=== PATIENT | male | born 1970 | race Two or more races ===

== ENCOUNTER 2024-03-25 11:00 | Inpatient (IN) | payer OTHER ==
[~2024-03-25] VITALS: Ht 180.3 cm; Wt 112.7 kg
[2024-03-25] MEDS: ONDANSETRON HCL 4 MG/2 ML VIAL IVP ONE (12:05)
[2024-03-25] MEDS: SODIUM CHLORIDE 0.9% 1,000 ML IV ONE (12:05)
[2024-03-25] MEDS: IOHEXOL 9 MG/ML 500 ML BOTTLE PO ONE (12:08)
[2024-03-25] MEDS ORDERED: IOHEXOL 350 MG/ML 100 ML VIAL ONE (12:52)
[2024-03-25] MEDS ORDERED: SODIUM CHLORIDE 0.9% 100 ML ONE (12:52)
[2024-03-25 12:59] LABS: BASOPHILS % (AUTO) 1.7 % (0.0-2.0); EOSINOPHILS % (AUTO) 10.3 % (1.0-6.0); HEMATOCRIT 44.8 % (41-53); HEMOGLOBIN 14.7 g/dL (13.5-17.5); LYMPHOCYTES # (AUTO) 2.1 K/uL (1.0-4.8); MEAN CORPUSCULAR HEMOGLOBIN 29.4 pg (26.0-34.0); MEAN CORPUSCULAR HGB CONC 32.8 G/dL (31.0-37.0); MEAN CORPUSCULAR VOLUME 90 fL (80-100); MONOCYTES # (AUTO) 1.3 K/uL (0.1-1.0); MONOCYTES % (AUTO) 14.5 % (2.0-9.0); NEUTROPHILS # (AUTO) 4.3 K/uL (1.8-7.7); NEUTROPHILS % (AUTO) 49.5 % (40.0-70.0); PLATELET COUNT (AUTO) 276 K/uL (150-450); RED CELL DISTRIBUTION WIDTH 15.9 % (11.5-14.5); WHITE BLOOD COUNT (AUTO) 8.6 K/uL (4.5-11.0)
[2024-03-25 13:04] LABS: ANION GAP 5 mmol/L (8-16); CALCIUM, TOTAL 8.5 mg/dL (8.8-10.5); CARBON DIOXIDE 30 mmol/L (22-29); CHLORIDE 102 mmol/L (98-107); CREATININE 0.88 mg/dL (0.60-1.30); GLOMERULAR FILTR. RATE CALC > 60 mL/min (>60); GLUCOSE,RANDOM 102 mg/dL (70-110); POTASSIUM 3.7 mmol/L (3.5-5.1); SODIUM SERUM 137 mmol/L (136-145); UREA NITROGEN, BLOOD 12 mg/dL (7-18)
[2024-03-25 13:10] LABS: ALANINE AMINOTRANSFERASE 108 U/L (12-78); ALBUMIN 3.4 g/dL (3.4-5.0); ALKALINE PHOSPHATASE 179 U/L (46-116); ASPARTATE AMINOTRANSFERASE 54 U/L (15-37); BILIRUBIN,TOTAL 0.7 mg/dL (0.1-1.0); LIPASE 74 U/L (16-77); TOTAL PROTEIN, SERUM 7.2 g/dL (6.4-8.2)
[2024-03-25 13:12] LABS: TROPONIN I-HIGH SENSITIVITY 13 ng/L (<76)
[2024-03-25 13:38] LABS: LACTIC ACID 2.1 mmol/L (0.4-2.0)
[2024-03-25] MEDS ORDERED: ONDANSETRON HCL 4 MG/2 ML VIAL IVP PRN (14:15)
[2024-03-25] MEDS: PEG 3350/NA SULF,BICARB,CL/KCL 4000 ML SOLUTION PO ONE (15:52)
[2024-03-25] MEDS: DEXTROSE 5%-LACTATED RINGERS 1,000 ML IV SCH (15:54)
[2024-03-25] MEDS ORDERED: PIPERACILLIN/TAZO 3.375 GM/D5W 50 ML IV ONE (16:00)
[2024-03-25] MEDS ORDERED: SODIUM CHLORIDE 0.9% 500 ML IV ONE (18:30)
[2024-03-25] MEDS: ACETAMINOPHEN 325 MG TABLET PO PRN (18:32)
[2024-03-25] MEDS: HEPARIN SODIUM,PORCINE 5,000 UNITS/ML VIAL SQ SCH (18:33)
[2024-03-25] MEDS: PIPERACILLIN/TAZO 3.375 GM/D5W 50 ML IV SCH (18:33)
[2024-03-25 19:47] VITALS: BP 139/78; PULSE 69; RESP 18; TEMP 98.1; O2SAT 98
[2024-03-25] MEDS ORDERED: DEXTROSE 50%-WATER 25 GM/50 ML SYRINGE IVP PRN (20:00)
[2024-03-25] MEDS: DOCUSATE SODIUM 100 MG CAPSULE PO SCH (20:10)
[2024-03-25] MEDS: INSULIN LISPRO 100 UNITS/ML SQ PRN (20:16)
[2024-03-26 04:24] VITALS: BP 129/90; PULSE 62; RESP 18; TEMP 97.8; O2SAT 97
[2024-03-26 05:23] LABS: APPEARANCE,URINE CLEAR (CLEAR); BILIRUBIN,URINE NEGATIVE (NEGATIVE); COLOR,URINE LIGHT YELLOW (YELLOW); GLUCOSE, URINE (UA) NEGATIVE (NEGATIVE); KETONES,URINE NEGATIVE (NEGATIVE); LEUKOCYTE ESTERASE ,URINE NEGATIVE (NEGATIVE); NITRATE,URINE NEGATIVE (NEGATIVE); OCCULT BLOOD,URINE NEGATIVE (NEGATIVE); PH,URINE 7.5 (5.0-8.0); PH,URINE DRUG SCREEN 7.5 (5.0-8.0); PROTEIN,URINE TRACE mg/dL (NEGATIVE); SPECIFIC GRAVITIY, URINE 1.015 (1.003-1.030); UROBILINOGEN,URINE <=1.0 mg/dL (<=1.0)
[2024-03-26 05:31] LABS: AMPHET/METH SCREEN,URINE NEGATIVE (NEGATIVE); BARBITURATE SCREEN, URINE NEGATIVE (NEGATIVE); BENZODIAZEPINES SCREEN,URINE NEGATIVE (NEGATIVE); CANNABINOID SCREEN,URINE NEGATIVE (NEGATIVE); COCAINE SCREEN,URINE NEGATIVE (NEGATIVE); METHADONE SCREEN, URINE NEGATIVE (NEGATIVE); OPIATE SCREEN,URINE NEGATIVE (NEGATIVE); PHENCYCLIDINE SCREEN,URINE NEGATIVE (NEGATIVE)
[2024-03-26 05:36] LABS: ALCOHOL, URINE DRUG SCREEN NEGATIVE (NEGATIVE)
[2024-03-26 05:45] LABS: GLUCOMETER DEV NAME(LOC) 6N.2B; GLUCOSE,POINT OF CARE 103 MG/DL (70-110)
[2024-03-26 05:45] LABS: GLUCOMETER DEV NAME(LOC) 6N.2B; GLUCOSE,POINT OF CARE 243 MG/DL (70-110)
[2024-03-26 05:58] LABS: BACTERIA,URINE None Seen /HPF (None Seen); RBC,URINE None Seen /HPF (0-2); SQUAMOUS EPITHELIAL CELL,UR Few /LPF (None Seen); WBC,URINE None Seen /HPF (0-5)
[2024-03-26 07:50] VITALS: BP 126/83; PULSE 62; RESP 18; TEMP 97.8; O2SAT 96
[2024-03-26 07:54] LABS: BASOPHILS % (AUTO) 1.5 % (0.0-2.0); HEMATOCRIT 42.3 % (41-53); HEMOGLOBIN 14.3 g/dL (13.5-17.5); LYMPHOCYTES # (AUTO) 2.3 K/uL (1.0-4.8); LYMPHOCYTES % (AUTO) 23.4 % (22.0-44.0); MEAN CORPUSCULAR HEMOGLOBIN 29.8 pg (26.0-34.0); MEAN CORPUSCULAR HGB CONC 33.7 G/dL (31.0-37.0); MEAN CORPUSCULAR VOLUME 89 fL (80-100); MONOCYTES # (AUTO) 1.2 K/uL (0.1-1.0); MONOCYTES % (AUTO) 12.1 % (2.0-9.0); NEUTROPHILS # (AUTO) 5.1 K/uL (1.8-7.7); PLATELET COUNT (AUTO) 263 K/uL (150-450); RED BLOOD CELL COUNT(AUTO) 4.78 MIL/uL (4.50-5.90); RED CELL DISTRIBUTION WIDTH 15.6 % (11.5-14.5); WHITE BLOOD COUNT (AUTO) 9.6 K/uL (4.5-11.0)
[2024-03-26] MEDS ORDERED: LOSA-382 PO (07:55)
[2024-03-26] MEDS ORDERED: SERT-158 PO (07:55)
[2024-03-26] MEDS ORDERED: BISA-151 PO (07:55)
[2024-03-26] MEDS ORDERED: HYDR25TA2 PO (07:55)
[2024-03-26] MEDS ORDERED: TRAZ-257 PO (07:55)
[2024-03-26] MEDS ORDERED: ATOR20TA PO (07:55)
[2024-03-26] MEDS ORDERED: BICT1TAB PO (07:55)
[2024-03-26] MEDS ORDERED: METF-1211 PO (07:55)
[2024-03-26] MEDS ORDERED: CHOL25TA4 PO (07:55)
[2024-03-26] MEDS ORDERED: PYRI25TA4 PO (07:55)
[2024-03-26] MEDS ORDERED: PRAZ1 PO (07:55)
[2024-03-26] MEDS ORDERED: AMLO-258 PO (07:55)
[2024-03-26 07:58] LABS: ANION GAP 6 mmol/L (8-16); CARBON DIOXIDE 30 mmol/L (22-29); CHLORIDE 103 mmol/L (98-107); CREATININE 0.87 mg/dL (0.60-1.30); GLOMERULAR FILTR. RATE CALC > 60 mL/min (>60); GLUCOSE,RANDOM 99 mg/dL (70-110); POTASSIUM 3.9 mmol/L (3.5-5.1); SODIUM SERUM 139 mmol/L (136-145); UREA NITROGEN, BLOOD 9 mg/dL (7-18)
[2024-03-26 12:34] VITALS: BP 134/81; PULSE 61; RESP 18; TEMP 97.6; O2SAT 96
[2024-03-26 14:37] LABS: PLATELET MORPHOLOGY COMMENT GIANT PLTS PRESENT
[2024-03-26 19:27] VITALS: BP 131/89; PULSE 65; RESP 18; TEMP 98.1; O2SAT 96
[2024-03-27 06:26] LABS: GLUCOMETER DEV NAME(LOC) 6S.2; GLUCOSE,POINT OF CARE 127 MG/DL (70-110)
[2024-03-27 06:26] LABS: GLUCOMETER DEV NAME(LOC) 6N.2B; GLUCOSE,POINT OF CARE 113 MG/DL (70-110)
[2024-03-27 06:26] LABS: GLUCOMETER DEV NAME(LOC) 6S.2; GLUCOSE,POINT OF CARE 109 MG/DL (70-110)
== END 2024-03-26 20:49 | DRG 392 ==
LOC: EMS 11:00 → EDH 14:13 → 6S 16:35
PROVIDERS: ADMIT Internal Medicine; ATTEND Internal Medicine
DX: K59.00 Constipation, unspecified (principal); E87.20 Acidosis, unspecified; I10 Essential (primary) hypertension; E11.9 Type 2 diabetes mellitus without complications; E86.0 Dehydration; K74.60 Unspecified cirrhosis of liver; K86.9 Disease of pancreas, unspecified
CPT/HCPCS: 74177; 80048; 80076; 80307; 81001; 82962; 83605; 83690; 83735; 84484; 85025; 93005; 99285; J1644; J2405; J2543; J7030; J7040; J7050

== ENCOUNTER 2024-04-26 15:53 | Emergency (ER) | payer OTHER ==
[~2024-04-26] VITALS: Ht 180.3 cm; Wt 111.8 kg
[~2024-04-26 15:53] MED LIST: AMLO-258 PO; ATOR20TA PO; BICT1TAB PO; BISA-151 PO; CHOL25TA4 PO; HYDR25TA2 PO; LOSA-382 PO; METF-1211 PO; PRAZ1 PO; PYRI25TA4 PO; SERT-158 PO; TRAZ-257 PO
[2024-04-26 17:22] VITALS: BP 121/73; PULSE 66; RESP 16; TEMP 97.8; O2SAT 98
[2024-04-26 17:46] LABS: BASOPHILS % (AUTO) 1.1 % (0.0-2.0); EOSINOPHILS % (AUTO) 7.8 % (1.0-6.0); HEMATOCRIT 39.1 % (41-53); HEMOGLOBIN 13.2 g/dL (13.5-17.5); LYMPHOCYTES # (AUTO) 2.3 K/uL (1.0-4.8); LYMPHOCYTES % (AUTO) 27.5 % (22.0-44.0); MEAN CORPUSCULAR HGB CONC 33.8 G/dL (31.0-37.0); MEAN CORPUSCULAR VOLUME 89 fL (80-100); MONOCYTES # (AUTO) 1.3 K/uL (0.1-1.0); MONOCYTES % (AUTO) 15.1 % (2.0-9.0); NEUTROPHILS # (AUTO) 4.1 K/uL (1.8-7.7); NEUTROPHILS % (AUTO) 48.5 % (40.0-70.0); PLATELET COUNT (AUTO) 253 K/uL (150-450); RED BLOOD CELL COUNT(AUTO) 4.42 MIL/uL (4.50-5.90); RED CELL DISTRIBUTION WIDTH 15.1 % (11.5-14.5); WHITE BLOOD COUNT (AUTO) 8.4 K/uL (4.5-11.0)
[2024-04-26 17:49] LABS: APPEARANCE,URINE CLEAR (CLEAR); BILIRUBIN,URINE NEGATIVE (NEGATIVE); COLOR,URINE LIGHT YELLOW (YELLOW); GLUCOSE, URINE (UA) NEGATIVE (NEGATIVE); KETONES,URINE NEGATIVE (NEGATIVE); LEUKOCYTE ESTERASE ,URINE NEGATIVE (NEGATIVE); NITRATE,URINE NEGATIVE (NEGATIVE); OCCULT BLOOD,URINE NEGATIVE (NEGATIVE); PROTEIN,URINE TRACE mg/dL (NEGATIVE); SPECIFIC GRAVITIY, URINE 1.012 (1.003-1.030); UROBILINOGEN,URINE <=1.0 mg/dL (<=1.0)
[2024-04-26] MEDS ORDERED: TRAZ150T80 PO (17:50)
[2024-04-26 18:00] LABS: ANION GAP 7 mmol/L (8-16); CALCIUM, TOTAL 8.5 mg/dL (8.8-10.5); CARBON DIOXIDE 27 mmol/L (22-29); CHLORIDE 104 mmol/L (98-107); CREATININE 0.99 mg/dL (0.60-1.30); GLOMERULAR FILTR. RATE CALC > 60 mL/min (>60); GLUCOSE,RANDOM 121 mg/dL (70-110); LIPASE 54 U/L (16-77); POTASSIUM 3.4 mmol/L (3.5-5.1); SODIUM SERUM 138 mmol/L (136-145); UREA NITROGEN, BLOOD 10 mg/dL (7-18)
[2024-04-26] MEDS: SODIUM CHLORIDE 0.9% 1,000 ML IV ONE (18:44)
== END 2024-04-27 02:41 ==
LOC: EMS 15:53
DX: K59.09 Other constipation (principal); K74.60 Unspecified cirrhosis of liver; G89.29 Other chronic pain; E11.9 Type 2 diabetes mellitus without complications; I10 Essential (primary) hypertension; Z79.84 Long term (current) use of oral hypoglycemic drugs; Z90.49 Acquired absence of other specified parts of digestive tract; Z98.890 Other specified postprocedural states; Z79.899 Other long term (current) drug therapy
CPT/HCPCS: 99284; 74176; 96360; 80048; 81003; 83690; 85025; 36415; 82962; 93005; J7030

== ENCOUNTER 2024-06-12 13:55 | Emergency (ER) | payer OTHER ==
[~2024-06-12] VITALS: Ht 180.3 cm; Wt 108.6 kg
[~2024-06-12 13:55] MED LIST changes: -TRAZ-257 PO; +TRAZ150T80 PO
[2024-06-12 14:45] LABS: BASOPHILS % (AUTO) 1.6 % (0.0-2.0); EOSINOPHILS % (AUTO) 8.7 % (1.0-6.0); HEMATOCRIT 37.9 % (41-53); HEMOGLOBIN 12.6 g/dL (13.5-17.5); LYMPHOCYTES # (AUTO) 1.8 K/uL (1.0-4.8); LYMPHOCYTES % (AUTO) 29.1 % (22.0-44.0); MEAN CORPUSCULAR HEMOGLOBIN 29.4 pg (26.0-34.0); MEAN CORPUSCULAR HGB CONC 33.2 G/dL (31.0-37.0); MEAN CORPUSCULAR VOLUME 89 fL (80-100); MONOCYTES # (AUTO) 0.8 K/uL (0.1-1.0); MONOCYTES % (AUTO) 13.2 % (2.0-9.0); NEUTROPHILS % (AUTO) 47.4 % (40.0-70.0); PLATELET COUNT (AUTO) 230 K/uL (150-450); RED BLOOD CELL COUNT(AUTO) 4.28 MIL/uL (4.50-5.90); RED CELL DISTRIBUTION WIDTH 14.6 % (11.5-14.5); WHITE BLOOD COUNT (AUTO) 6.3 K/uL (4.5-11.0)
[2024-06-12 14:55] LABS: ANION GAP 5 mmol/L (8-16); CALCIUM, TOTAL 8.8 mg/dL (8.8-10.5); CARBON DIOXIDE 29 mmol/L (22-29); CHLORIDE 105 mmol/L (98-107); CREATININE 0.75 mg/dL (0.60-1.30); GLOMERULAR FILTR. RATE CALC > 60 mL/min (>60); GLUCOSE,RANDOM 78 mg/dL (70-110); SODIUM SERUM 139 mmol/L (136-145); UREA NITROGEN, BLOOD 12 mg/dL (7-18)
[2024-06-12 14:56] VITALS: TEMP 97.8
[2024-06-12 14:59] LABS: ALBUMIN 3.1 g/dL (3.4-5.0); BILIRUBIN,TOTAL 0.6 mg/dL (0.1-1.0); TOTAL PROTEIN, SERUM 7.1 g/dL (6.4-8.2)
[2024-06-12 15:14] LABS: B-TYPE NATRIURETIC PEPTIDE 17 pg/mL (0-100)
[2024-06-12 15:26] LABS: BILIRUBIN,DIRECT 0.3 mg/dL (0.00-0.20)
[2024-06-12 16:35] VITALS: BP 122/81; PULSE 72; RESP 20; O2SAT 97
== END 2024-06-12 16:40 | disposition home or self-care (01) ==
LOC: EMS 13:55
DX: R60.0 Localized edema (principal); E11.9 Type 2 diabetes mellitus without complications; I10 Essential (primary) hypertension; Z79.84 Long term (current) use of oral hypoglycemic drugs; Z90.49 Acquired absence of other specified parts of digestive tract; Z79.899 Other long term (current) drug therapy; Z98.890 Other specified postprocedural states
CPT/HCPCS: 80048; 80076; 83880; 85025; 93970; 99284

== ENCOUNTER 2024-09-26 10:39 | Inpatient (IN) | payer OTHER ==
[~2024-09-26] VITALS: Ht 177.8 cm; Wt 112.5 kg
[~2024-09-26 10:39] MED LIST changes: +ACET-2247 PO; +BISA10SU11 PR; +DOCU-385 PO; +FAMO20 PO; +INSU100V SQ; +LINA145C PO; +MAGN-169 PO
[2024-09-26 11:18] LABS: COVID AG,FIA SOURCE NASAL SWAB
[2024-09-26 11:25] LABS: APPEARANCE,URINE CLEAR (CLEAR); GLUCOSE, URINE (UA) NEGATIVE (NEGATIVE); LEUKOCYTE ESTERASE ,URINE LARGE (NEGATIVE); NITRATE,URINE NEGATIVE (NEGATIVE); OCCULT BLOOD,URINE SMALL (NEGATIVE); SPECIFIC GRAVITIY, URINE 1.011 (1.003-1.030)
[2024-09-26 11:42] LABS: SQUAMOUS EPITHELIAL CELL,UR Few /LPF (None Seen)
[2024-09-26 11:47] LABS: SARS-COV2 (COVID) ANTIGEN,FIA Negative (Negative)
[2024-09-26 11:48] LABS: INFLUENZA TYPE A NEGATIVE FOR TYPE A (NEGATIVE); INFLUENZA TYPE B NEGATIVE FOR TYPE B (NEGATIVE)
[2024-09-26 11:49] LABS: PLATELET COUNT (AUTO) 180 K/uL (150-450); RED BLOOD CELL COUNT(AUTO) 4.17 MIL/uL (4.50-5.90); RED CELL DISTRIBUTION WIDTH 15.6 % (11.5-14.5); WHITE BLOOD COUNT (AUTO) 22.8 K/uL (4.5-11.0)
[2024-09-26 11:54] LABS: CALCIUM, TOTAL 8.2 mg/dL (8.8-10.5); CREATININE 0.90 mg/dL (0.60-1.30); GLOMERULAR FILTR. RATE CALC > 60 mL/min (>60); GLUCOSE,RANDOM 131 mg/dL (70-110); SODIUM SERUM 139 mmol/L (136-145); UREA NITROGEN, BLOOD 11 mg/dL (7-18)
[2024-09-26] MEDS: SODIUM CHLORIDE 0.9% 1,000 ML IV ONE ×2 (12:02→15:22)
[2024-09-26 12:10] LABS: LACTIC ACID 0.9 mmol/L (0.4-2.0)
[2024-09-26] MEDS ORDERED: 0.9% SODIUM CHLORIDE 10 ML SYRINGE IVP PRN (12:15)
[2024-09-26] MEDS: CefTRIAXone 1 GM/DEXTROSE 50 ML IV ONE (12:16)
[2024-09-26] MEDS: SODIUM CHLORIDE 0.9% 3,150 ML IV ONE (12:18)
[2024-09-26] MEDS ORDERED: ZOLPIDEM TARTRATE 5 MG TABLET PO PRN (14:00)
[2024-09-26] MEDS ORDERED: MAGNESIUM HYDROXIDE SUSPENSION 30 ML UDCUP PO PRN (14:00)
[2024-09-26] MEDS ORDERED: BISACODYL 10 MG RECTAL RECTAL SUPPOSITORY PR PRN (14:00)
[2024-09-26] MEDS ORDERED: DEXTROSE 50%-WATER 25 GM/50 ML SYRINGE IVP PRN (14:00)
[2024-09-26] MEDS ORDERED: ONDANSETRON HCL 4 MG/2 ML VIAL IVP PRN (14:00)
[2024-09-26] MEDS ORDERED: OMEP-148 PO (14:28)
[2024-09-26] MEDS ORDERED: TRAZ-257 PO (14:28)
[2024-09-26] MEDS ORDERED: SPIR-37 PO (14:28)
[2024-09-26] MEDS ORDERED: PYRI-9 PO (14:28)
[2024-09-26] MEDS ORDERED: CARV12 PO (14:28)
[2024-09-26] MEDS ORDERED: METH1ADH11 TP (14:28)
[2024-09-26] MEDS ORDERED: LOSA-382 PO (14:28)
[2024-09-26] MEDS ORDERED: PREG75 PO (14:28)
[2024-09-26] MEDS ORDERED: ARIP15TA27 PO (14:28)
[2024-09-26] MEDS ORDERED: FURO40TA6 PO (14:28)
[2024-09-26 14:48] VITALS: BP 147/82; PULSE 66; RESP 18; TEMP 98.2; O2SAT 98
[2024-09-26] MEDS: HEPARIN SODIUM,PORCINE 5,000 UNITS/ML VIAL SQ SCH (15:22)
[2024-09-26 16:00] LABS: GLUCOMETER DEV NAME(LOC) 5S.1D; GLUCOSE,POINT OF CARE 99 MG/DL (70-110)
[2024-09-26] MEDS: MORPHINE SULFATE 2 MG/ML SYRINGE IVP PRN (17:42)
[2024-09-26] MEDS: DOCUSATE SODIUM 100 MG CAPSULE PO SCH (20:06)
[2024-09-26] MEDS: SERTRALINE HCL 50 MG TABLET PO SCH (20:07)
[2024-09-26] MEDS: TraZODone HCL 150 MG TABLET PO SCH (20:07)
[2024-09-26] MEDS: INSULIN LISPRO 100 UNITS/ML SQ PRN (20:12)
[2024-09-26 20:15] VITALS: BP 131/75; PULSE 80; RESP 18; TEMP 101.8; O2SAT 96
[2024-09-26] MEDS: ACETAMINOPHEN 325 MG TABLET PO PRN (20:21)
[2024-09-26 21:15] VITALS: TEMP 98.9
[2024-09-26 21:16] LABS: GLUCOMETER DEV NAME(LOC) 5S.1D; GLUCOSE,POINT OF CARE 208 MG/DL (70-110)
[2024-09-26 23:28] VITALS: BP 125/76; PULSE 69; RESP 18; TEMP 99.7; O2SAT 96
[2024-09-26] MEDS: HYDROCODONE/ACETAMINOPHEN 5-325 MG TABLET PO PRN (23:36)
[2024-09-27 00:30] VITALS: TEMP 98.6
[2024-09-27 04:28] VITALS: BP 132/81; PULSE 55; RESP 19; TEMP 97.7; O2SAT 96
[2024-09-27 06:01] LABS: GLUCOMETER DEV NAME(LOC) 5S.1D; GLUCOSE,POINT OF CARE 153 MG/DL (70-110)
[2024-09-27 06:01] LABS: GLUCOMETER DEV NAME(LOC) 5S.1D; GLUCOSE,POINT OF CARE 107 MG/DL (70-110)
[2024-09-27 07:30] VITALS: BP 130/79; PULSE 59; RESP 18; TEMP 98.4; O2SAT 96
[2024-09-27] MEDS: BICTEGRAV/EMTRICIT/TENOFOV ALA 50-200-25 MG TABLET PO SCH (08:18)
[2024-09-27] MEDS: ATORVASTATIN CALCIUM 20 MG TABLET PO SCH (08:18)
[2024-09-27] MEDS: PANTOPRAZOLE SODIUM 40 MG DR TABLET PO SCH (08:19)
[2024-09-27] MEDS: CHOLECALCIFEROL (VIT D3) 1,000 UNITS [25 MCG] TABLET PO SCH (08:19)
[2024-09-27 10:12] VITALS: BP 137/81; PULSE 67; RESP 18; TEMP 98.4; O2SAT 96
[2024-09-27 11:25] LABS: PLATELET COUNT (AUTO) 196 K/uL (150-450); RED BLOOD CELL COUNT(AUTO) 4.35 MIL/uL (4.50-5.90); RED CELL DISTRIBUTION WIDTH 15.9 % (11.5-14.5); WHITE BLOOD COUNT (AUTO) 18.4 K/uL (4.5-11.0)
[2024-09-27] MEDS ORDERED: SODIUM CHLORIDE 0.9% 250 ML IV ONE (11:42)
[2024-09-27] MEDS: CefTRIAXone 1 GM/DEXTROSE 50 ML IV SCH (12:08)
[2024-09-27 13:11] LABS: GLUCOMETER DEV NAME(LOC) 6S.1D; GLUCOSE,POINT OF CARE 119 MG/DL (70-110)
[2024-09-27 20:31] VITALS: BP 127/78; PULSE 58; RESP 18; TEMP 98.8; O2SAT 95
[2024-09-27] MEDS: DOXYCYCLINE HYCLATE 100 MG TABLET PO SCH (20:39)
[2024-09-28 04:54] VITALS: BP 138/92; PULSE 58; RESP 20; TEMP 98.4; O2SAT 96
[2024-09-28 07:51] LABS: GLUCOMETER DEV NAME(LOC) 6S.1D; GLUCOSE,POINT OF CARE 109 MG/DL (70-110)
[2024-09-28 07:51] LABS: GLUCOMETER DEV NAME(LOC) 6S.2; GLUCOSE,POINT OF CARE 117 MG/DL (70-110)
[2024-09-28 07:51] LABS: GLUCOMETER DEV NAME(LOC) 6S.1D; GLUCOSE,POINT OF CARE 121 MG/DL (70-110)
[2024-09-28 08:00] VITALS: BP 145/94; PULSE 50; RESP 19; TEMP 98.2; O2SAT 98
[2024-09-28 18:00] LABS: GLUCOMETER DEV NAME(LOC) 6S.1D; GLUCOSE,POINT OF CARE 130 MG/DL (70-110)
[2024-09-28 18:00] LABS: GLUCOMETER DEV NAME(LOC) 6S.1D; GLUCOSE,POINT OF CARE 142 MG/DL (70-110)
[2024-09-28 19:28] VITALS: BP 138/88; PULSE 58; RESP 18; TEMP 98.2; O2SAT 97
[2024-09-29 04:28] VITALS: BP 149/94; PULSE 59; RESP 18; TEMP 98.2; O2SAT 96
[2024-09-29 08:47] VITALS: BP 147/98; PULSE 65; RESP 19; TEMP 98.1; O2SAT 95
[2024-09-29 12:10] LABS: GLUCOMETER DEV NAME(LOC) 6S.1D; GLUCOSE,POINT OF CARE 148 MG/DL (70-110)
[2024-09-29 12:10] LABS: GLUCOMETER DEV NAME(LOC) 6S.1D; GLUCOSE,POINT OF CARE 104 MG/DL (70-110)
[2024-09-29 14:03] LABS: PLATELET COUNT (AUTO) 281 K/uL (150-450); RED BLOOD CELL COUNT(AUTO) 4.69 MIL/uL (4.50-5.90); RED CELL DISTRIBUTION WIDTH 15.7 % (11.5-14.5); WHITE BLOOD COUNT (AUTO) 7.6 K/uL (4.5-11.0)
[2024-09-29 20:06] VITALS: BP 145/94; PULSE 56; RESP 18; TEMP 97.9; O2SAT 97
[2024-09-30 04:31] VITALS: BP 145/93; PULSE 57; RESP 18; TEMP 97.9; O2SAT 95
[2024-09-30 06:39] LABS: PLATELET COUNT (AUTO) 300 K/uL (150-450); RED BLOOD CELL COUNT(AUTO) 4.81 MIL/uL (4.50-5.90); RED CELL DISTRIBUTION WIDTH 15.7 % (11.5-14.5); WHITE BLOOD COUNT (AUTO) 7.4 K/uL (4.5-11.0)
[2024-09-30 06:54] LABS: CALCIUM, TOTAL 9.0 mg/dL (8.8-10.5); CREATININE 0.75 mg/dL (0.60-1.30); GLOMERULAR FILTR. RATE CALC > 60 mL/min (>60); GLUCOSE,RANDOM 107 mg/dL (70-110); SODIUM SERUM 140 mmol/L (136-145); UREA NITROGEN, BLOOD 14 mg/dL (7-18)
[2024-09-30 07:36] LABS: GLUCOMETER DEV NAME(LOC) 6N.2C; GLUCOSE,POINT OF CARE 111 MG/DL (70-110)
[2024-09-30 07:36] LABS: GLUCOMETER DEV NAME(LOC) 6S.2; GLUCOSE,POINT OF CARE 112 MG/DL (70-110)
[2024-09-30 08:17] VITALS: BP 127/87; PULSE 55; RESP 18; TEMP 97.6; O2SAT 96
[2024-09-30 13:41] LABS: GLUCOMETER DEV NAME(LOC) 6S.1D; GLUCOSE,POINT OF CARE 103 MG/DL (70-110)
[2024-09-30] MEDS ORDERED: DOXY-354 PO (14:08)
== END 2024-09-30 21:25 | DRG 872 ==
LOC: EMS 11:17 → EDH 12:13 → 5S 14:40 → 6S 09-27 10:40
PROVIDERS: ADMIT Internal Medicine; ATTEND Internal Medicine
DX: A41.9 Sepsis, unspecified organism (principal); N39.0 Urinary tract infection, site not specified; I10 Essential (primary) hypertension; E11.9 Type 2 diabetes mellitus without complications; N45.3 Epididymo-orchitis; Z20.822 Contact with and (suspected) exposure to COVID-19; K74.60 Unspecified cirrhosis of liver; E78.5 Hyperlipidemia, unspecified; Z90.81 Acquired absence of spleen; Z79.4 Long term (current) use of insulin; Z79.899 Other long term (current) drug therapy; Z90.49 Acquired absence of other specified parts of digestive tract
CPT/HCPCS: 71045; 76870; 80048; 81001; 82962; 83605; 84145; 85025; 85610; 87040; 87077; 87086; 87186; 87804; 93005; 99291; J0696; J1644; J2270; J7030; J7050; 36415-L1; 36415-TC

== ENCOUNTER 2024-12-14 21:09 | Emergency (ER) | payer OTHER ==
[~2024-12-14 21:09] MED LIST changes: -AMLO-258 PO; +ARIP15TA27 PO; -BISA10SU11 PR; +CARV12 PO; -DOCU-385 PO; +DOXY-354 PO; -FAMO20 PO; +FURO40TA6 PO; -HYDR25TA2 PO; -INSU100V SQ; -LINA145C PO; -MAGN-169 PO; +METH1ADH11 TP; +OMEP-148 PO; -PRAZ1 PO; +PREG75 PO; +PYRI-9 PO; -PYRI25TA4 PO; +SPIR-37 PO
[2024-12-15 01:49] LABS: PLATELET COUNT (AUTO) 252 K/uL (150-450); RED BLOOD CELL COUNT(AUTO) 4.56 MIL/uL (4.50-5.90); RED CELL DISTRIBUTION WIDTH 15.9 % (11.5-14.5); WHITE BLOOD COUNT (AUTO) 7.2 K/uL (4.5-11.0)
[2024-12-15 01:58] LABS: CALCIUM, TOTAL 8.3 mg/dL (8.8-10.5); CREATININE 0.68 mg/dL (0.60-1.30); GLOMERULAR FILTR. RATE CALC > 60 mL/min (>60); GLUCOSE,RANDOM 145 mg/dL (70-110); SODIUM SERUM 139 mmol/L (136-145); UREA NITROGEN, BLOOD 14 mg/dL (7-18)
[2024-12-15 02:05] LABS: COVID AG,FIA SOURCE NASAL SWAB
[2024-12-15 02:13] LABS: INFLUENZA TYPE A NEGATIVE FOR TYPE A (NEGATIVE); INFLUENZA TYPE B NEGATIVE FOR TYPE B (NEGATIVE)
[2024-12-15 02:15] LABS: SARS-COV2 (COVID) ANTIGEN,FIA Negative (Negative)
[2024-12-15 05:35] VITALS: RESP 20
== END 2024-12-15 10:09 ==
LOC: EMS 21:11
DX: B19.20 Unspecified viral hepatitis C without hepatic coma (principal); E11.9 Type 2 diabetes mellitus without complications; I10 Essential (primary) hypertension; Z90.49 Acquired absence of other specified parts of digestive tract; Z79.899 Other long term (current) drug therapy; Z98.890 Other specified postprocedural states; Z20.822 Contact with and (suspected) exposure to COVID-19
CPT/HCPCS: 80048; 85025; 87389; 87536; 87804; 99283